=== PATIENT | male | born 1995 | race Caucasian/White ===

== ENCOUNTER 2023-06-15 22:08 | Emergency (ER) | payer BC ==
[~2023-06-15] VITALS: Ht 175.3 cm; Wt 70.3 kg
[2023-06-15 22:27] VITALS: BP 131/84; TEMP 97.9; O2SAT 98
== END 2023-06-15 22:40 | disposition home or self-care (01) ==
LOC: ER 22:17
DX: R42 Dizziness and giddiness (principal); F17.210 Nicotine dependence, cigarettes, uncomplicated